=== PATIENT | female | born 1955 | race Caucasian/White ===

== ENCOUNTER 2022-03-24 15:18 | Emergency (ER) | payer SELFPAY ==
[~2022-03-24] VITALS: Ht 175.3 cm; Wt 56.2 kg
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
--- NOTE | 2022-03-24 15:30 | NUR ---
CALLED JUAN LUIS [phone] [employer] [phone] PT TO CALL [facility] [employer] [facility] [phone] OPTION 7 TO MAKE POLICE REPORT.
--- NOTE | 2022-03-24 16:01 | NUR ---
[place] [facility] UNIT# [phone] AT BEDSIDE.
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
[2022-03-24] MEDS ORDERED: IBUPROFEN 600 MG TABLET ONE (16:10)
[2022-03-24] MEDS ORDERED: ACETAMINOPHEN ES 500 MG TABLET ONE (16:10)
[2022-03-24] MEDS ORDERED: TDAP [DIPH/PERTUSSIS/TET] 0.5 ML VIAL IM ONE (16:10)
[2022-03-24] MEDS: TDAP [DIPH/PERTUSSIS/TET] 0.5 ML VIAL IM ONE (16:18)
[2022-03-24] MEDS: IBUPROFEN 600 MG TABLET PO ONE (16:18)
[2022-03-24] MEDS: ACETAMINOPHEN ES 500 MG TABLET PO ONE (16:18)
[2022-03-24] MEDS ORDERED: LIDOCAINE 2% 20 ML MDV ONE (16:20)
[2022-03-24] MEDS: LIDOCAINE 1%-EPI 1:100,000 20 ML VIAL TP ONE (16:21)
[2022-03-24] MEDS: LIDOCAINE 2% 20 ML MDV TP ONE (16:22)
[2022-03-24] MEDS ORDERED: IBUP-1953 PO (18:10)
[2022-03-24 19:01] VITALS: BP 132/82
== END 2022-03-24 19:01 | disposition home or self-care (01) ==
LOC: ER 15:56
DX: S41.112A Laceration without foreign body of left upper arm, initial encounter (principal); Z88.0 Allergy status to penicillin; W18.09XA Striking against other object with subsequent fall, initial encounter; Y93.01 Activity, walking, marching and hiking; Y92.411 Interstate highway as the place of occurrence of the external cause; Y99.8 Other external cause status
CPT/HCPCS: 99284; 70450; 12004; 90471; 90715; J3490